=== PATIENT | male | born 1990 | race African-American/Black ===

== ENCOUNTER 2019-07-20 04:20 | Emergency (ER) | payer SELFPAY ==
[~2019-07-20] VITALS: Ht 180 cm; Wt 86.0 kg
[2019-07-20] MEDS ORDERED: ASPIRIN 81 MG CHEW (CHILDREN'S ASA) ONE (04:34)
[2019-07-20] MEDS ORDERED: NS IV 1000 ML 1,000 ML ONE (04:34)
[2019-07-20] MEDS ORDERED: NITROGLYCERIN 0.4 MG SL TABS BTL 25'S SL ONE (04:34)
[2019-07-20] MEDS ORDERED: NS IV 1000 ML 1,000 ML IV SCH (04:37)
[2019-07-20] MEDS ORDERED: NITROGLYCERIN 0.4 MG SL TABS BTL 25'S SL PRN (04:45)
[2019-07-20] MEDS ORDERED: ASPIRIN 81 MG CHEW (CHILDREN'S ASA) PO ONE (04:45)
--- NOTE | 2019-07-20 04:45 | ED Chest Pain ---
General Chief Complaint: Chest Pain Stated Complaint: CHEST & BACK PAIN Nursing Triage Note: Pt ambulates to [facility] with c/o chest pain that radiates to back that started yesterday. Pt denies any cardiac Hx, no fever/chills/SOB. Nursing Sepsis Screen: No Definite Risk Source: patient Exam Limitations: no limitations History of Present Illness Date Seen by Provider: Jul 20, 2019 Time Seen by Provider: 04:27 Initial Comments The patient arrives to the ER by private conveyance from home with chief complaint of chest pain, 7 out of 10, consistent for the past 2 days starting in his left chest radiating through to his back midline. He's having no shortness of breath and it is a little worse when he takes a deep inspiration but he's had no cough fevers chills nausea vomiting or sweats. The pain does not radiate to his shoulders or jaw. No personal or familial history of early-onset coronary artery disease. He has no history of high blood pressure cholesterol diabetes that is aware of. He does not follow with a primary care doctor. He does not smoke cigarettes. He denies use of recreational drugs and only occasionally drinks alcohol. He has never had pain like this before. He says is not been doing any strenuous workouts lately. He says it hurts when he tries to sit up. He cannot reproduce it by movement of his arms or shoulders. He cannot reproduce it by direct palpation. No known history of aneurysm or clots personally or fami lial. His fianc gave him a dose of ibuprofen because he was unable to sleep tonight and he says it did not help. He has not tried anything for indigestion and denies a history of GERD. He denies any recent travel or known sick contacts. He works as a high school coach. Historically he's had his gallbladder out as well as dental surgery but not recently. No recent periods of immobility, injury, long distance travel. Allergies and Home Medications Allergies Coded Allergies: No Known Drug Allergies (Unverified , 07/20/19) Patient Home Medication List Home Medication List Reviewed: Yes Review of Systems Review of Systems Constitutional: No chills, No diaphoresis, No fever, No malaise EENTM: No Blurred Vision, No Double Vision Respiratory: Denies Cough, Denies Shortness of Air Cardiovascular: See HPI, Chest Pain; Denies Edema, Denies Lightheadedness, Denies Palpitations, Denies Syncope Gastrointestinal: Denies Abdominal Pain, Denies Constipated, Denies Diarrhea, Denies Nausea Genitourinary: Denies Burning, Denies Discharge Musculoskeletal: see HPI; No back pain, No joint pain Skin: No pruritus, No rash Psychiatric/Neurological: Denies Headache, Denies Numbness All Other Systems Reviewed Negative Unless Noted: Yes Past [place]-Xxrftv-Lqlems Hx Patient Social History Alcohol Use: Occasionally Uses Recreational Drug Use: No Smoking Status: Never a Smoker 2nd Hand Smoke Exposure: No Recent Foreign Travel: No Contact w/Someone Who Travel: No Recent Infectious Disease Expo: No Recent Hopitalizations: No Physical Abuse: No Sexual Abuse: No Mistreated: No Fear: No Immunizations Up To Date Date of Influenza Vaccine: Jan 17, 2019 Seasonal Allergies Seasonal Allergies: No Past Medical History Surgeries: Yes Gallbladder Respiratory: No Cardiac: No Neurological: No Genitourinary: No Gastrointestinal: No Musculoskeletal: No Endocrine: No HEENT: No Cancer: No Psychosocial: No Integumentary: No Blood Disorders: No Physical Exam Vital Signs Vital Signs - First Documented 07/20/19 04:30 Temp 36.9 Pulse 61 Resp 20 B/P (MAP) 152/90 (110) Pulse Ox 99 O2 Delivery Room Air Capillary Refill : Less Than 3 Seconds Height, Weight, BMI Height: '" Weight: lbs. oz. kg; 26.00 BMI Method: General Appearance: WD/WN, Mild Distress HEENT: PERRL/EOMI, Pharynx Normal, Moist Mucous Membranes Neck: Full Range of Motion, Normal Inspection Respiratory: Chest Non Tender, Lungs Clear, Normal Breath Sounds, No Accessory Muscle Use, No Respiratory Distress Cardiovascular: Regular Rate, Rhythm, No Edema, Normal Peripheral Pulses Gastrointestinal: Normal Bowel Sounds, Non Tender, Soft Extremity: Normal Capillary Refill, Normal Inspection, No Pedal Edema Neurologic/Psychiatric: Alert, Oriented x3, No Motor/Sensory Deficits Skin: Normal Color, Warm/Dry Progress/Results/Core Measures Results/Orders Lab Results Laboratory Tests Test 07/20/19 04:32 Range/Units White Blood Count 6.0 4.3-11.0 10^3/uL Red Blood Count 5.13 4.35-5.85 10^6/uL Hemoglobin 14.6 13.3-17.7 G/DL Hematocrit 43 40-54 % Mean Corpuscular Volume 85 80-99 FL Mean Corpuscular Hemoglobin 29 25-34 PG Mean Corpuscular Hemoglobin Concent 34 32-36 G/DL Red Cell Distribution Width 13.6 10.0-14.5 % Platelet Count 222 130-400 10^3/uL Mean Platelet Volume 10.2 7.4-10.4 FL Neutrophils (%) (Auto) 48 42-75 % Lymphocytes (%) (Auto) 38 12-44 % Monocytes (%) (Auto) 11 0-12 % Eosinophils (%) (Auto) 2 0-10 % Basophils (%) (Auto) 0 0-10 % Neutrophils # (Auto) 2.9 1.8-7.8 X 10^3 Lymphocytes # (Auto) 2.3 1.0-4.0 X 10^3 Monocytes # (Auto) 0.7 0.0-1.0 X 10^3 Eosinophils # (Auto) 0.1 0.0-0.3 10^3/uL Basophils # (Auto) 0.0 0.0-0.1 10^3/uL Prothrombin Time 13.1 12.2-14.7 SEC INR Comment 1.0 0.8-1.4 Activated Partial Thromboplast Time 30 24-35 SEC Sodium Level 140 135-145 MMOL/L Potassium Level 4.1 3.6-5.0 MMOL/L Chloride Level 106 98-107 MMOL/L Carbon Dioxide Level 21 21-32 MMOL/L Anion Gap 13 5-14 MMOL/L Blood Urea Nitrogen 12 7-18 MG/DL Creatinine 1.24 0.60-1.30 MG/DL Estimat Glomerular Filtration Rate > 60 BUN/Creatinine Ratio 10 Glucose Level 111 H 70-105 MG/DL Calcium Level 9.3 8.5-10.1 MG/DL Corrected Calcium 9.1 8.5-10.1 MG/DL Magnesium Level 2.1 1.6-2.4 MG/DL Total Bilirubin 0.3 0.1-1.0 MG/DL Aspartate Amino Transf (AST/SGOT) 25 5-34 U/L Alanine Aminotransferase (ALT/SGPT) 30 0-55 U/L Alkaline Phosphatase 98 40-136 U/L Total Creatine Kinase 305 H 30-200 U/L Myoglobin 38.7 10.0-92.0 NG/ML Troponin I < 0.028 <0.028 NG/ML B-Type Natriuretic Peptide < 10.0 <100.0 PG/ML Total Protein 7.2 6.4-8.2 GM/DL Albumin 4.2 3.2-4.5 GM/DL Lipase 14 8-78 U/L My Orders Orders - JEMZOHRA J Cbc With Automated Diff (07/20/19 04:37) Magnesium (07/20/19 04:37) Chest 1 View, Ap/Pa Only (07/20/19 04:37) Ekg Tracing (07/20/19 04:37) Comprehensive Metabolic Panel (07/20/19 04:37) Myoglobin Serum (07/20/19 04:37) Protime With Inr (07/20/19 04:37) Partial Thromboplastin Time (07/20/19 04:37) O2 (07/20/19 04:37) Monitor-Rhythm Ecg Trace Only (07/20/19 04:37) Lipid Panel (07/21/19 06:00) Ed Iv/Invasive Line Start (07/20/19 04:37) Lipase (07/20/19 04:37) BNP (07/20/19 04:37) Troponin I (07/20/19 04:37) Nitroglycerin 0.4 Mg Btl 25's (Nitrostat (07/20/19 04:45) Aspirin Chewable Tablet (Baby Aspirin Ch (07/20/19 04:45) Ed Iv/Invasive Line Start (07/20/19 04:37) Ns Iv 1000 Ml (Sodium Chloride 0.9%) (07/20/19 04:37) Creatine Kinase (07/20/19 04:37) Nitroglycerin 0.4 Mg Btl 25's (Nitrostat (07/20/19 04:34) Aspirin Chewable Tablet (Baby Aspirin Ch (07/20/19 04:34) Ns Iv 1000 Ml (Sodium Chloride 0.9%) (07/20/19 04:34) Lidocaine 2% Viscous 15 Ml (Xylocaine Vi (07/20/19 05:00) Famotidine Tablet (Pepcid Tablet) (07/20/19 04:52) Antacid Suspension (Mylanta Suspension (07/20/19 05:00) Troponin I (07/20/19 05:30) Medications Given in ED Current Medications Medications Dose Ordered Sig/Dom Route Start Time Stop Time Status Last Admin Dose Admin Al Hydrox/Mg Hydrox/Simethicone 30 ml ONCE ONCE PO 07/20/19 05:00 07/20/19 05:01 DC 07/20/19 04:57 30 ML Aspirin 324 mg ONCE ONCE PO 07/20/19 04:45 07/20/19 04:46 DC 07/20/19 04:41 324 MG Lidocaine HCl 15 ml ONCE ONCE PO 07/20/19 05:00 07/20/19 05:01 DC 07/20/19 04:57 15 ML Nitroglycerin 0.4 mg UD PRN SL 07/20/19 04:45 07/20/19 04:42 0.4 MG Vital Signs/I&O 07/20/19 07/20/19 04:30 04:36 Temp 36.9 Pulse 61 Resp 20 B/P (MAP) 152/90 (110) Pulse Ox 99 O2 Delivery Room Air Room Air Blood Pressure Mean: 110 Progress Progress Note #1: Time: 04:43 Progress Note Coronary disease, GERD, costochondritis, aortic aneurysm , exercise-induced rhabdomyolysis, etc. Less likely pulmonary embolism, pneumonia or bronchospasm as he has no respiratory symptoms, tachycardia, air hunger or hypoxia. We'll going to start with nitroglycerin and aspirin. If this does not help his pain will try a GI cocktail. If his troponin is negative we may still consider getting a CT angiogram to rule out an aortic aneurysm and less likely pulmonary embolism. We'll also get a lipase and BNP. Wells' score for pulmonary embolism: 0.0 points; Low risk group: 1.3% chance of PE in an ED population. Perc criteria: 0 criteria; No need for further workup, as <2% chance of PE. 0455: Nitroglycerin did not improve the patient's pain. We are going to give him a GI cocktail. Progress Note #2: Time: 05:31 Progress Note The patient received no benefit from the nitroglycerin and his initial troponin is negative. He did however see improvement after the GI cocktail to nearly complete resolution of symptoms. The plan to repeat a delta troponin in 1 hour and if it is still negative we'll put him out on Carafate and omeprazole. We'll give him a referral to see Dr. Ramirez, General Surgery if he's not seeing improvement of symptoms in the next 2 weeks. The marginally elevated CPK is of uncertain significance. The patient is athletic but says is not been doing any strenuous workouts lately. He says for the past couple weeks he's mostly been sitting on the couch eating and gaining weight and his fiance has been encouraging him to get up and become more active but prior to that he has always been quite athletic. Initial ECG Impression Date: Jul 20, 2019 Initial ECG Impression Time: 04:30 Initial ECG Rate: 59 Initial ECG Rhythm: Normal Sinus Initial ECG Intervals: Normal Initial ECG Impression: Normal Initial ECG Comparisson: No Previous ECG Available Comment Normal sinus rhythm without clinically relevant ST elevation or depression. Diagnostic Imaging Diagonstic Imaging: Xray Plain Films/CT/US/NM/MRI: chest (1 view) Comments No acute cardiopulmonary process noted on one view chest x-ray. Reviewed: Reviewed by Me Transfer of Care Time: 06:00 Care transferred to: Dr. Lovett Departure Impression Primary Impression: GERD (gastroesophageal reflux disease) Qualified Codes: K21.0 - Gastro-esophageal reflux disease with esophagitis Disposition: HOME, SELF-CARE Condition: Stable Departure-Patient Inst. Referrals: JOHN RAMIREZ DO NO,LOCAL PHYSICIAN (PCP) Primary Care Physician Patient Instructions: Acid Reflux (Gastroesophageal Reflux Disease), Adult (DC) Add. Discharge Instructions: I suspect the pain in your chest is coming from esophagitis related to gastroesophageal reflux disease or GERD. Please review the handout on GERD. Avoid spicy, greasy foods that worsen your symptoms. For the next month or 2 avoid NSAIDs such as ibuprofen, Aleve, naproxen. Tylenol would be okay if you have minor pain. Start taking the omeprazole 20 mg twice a day for the next 4 weeks. Start taking the Carafate 1 tablet 30 minutes prior to meals and at bedtime for a total of 4 times a day for 2 weeks. If you're not seeing significant improvement by the end of this 2 weeks then you should follow-up with Dr. Ramirez, General Surgery and discuss further management of your symptoms. Alternatively you may establish care with a primary care doctor to continue the workup. If you're having significant chest pain, shortness of breath or other worrisome symptoms then please return to the nearest ER. You can try Rolaids, Tums, Mylanta, Maalox, etc. if you experience this discomfort again. All discharge instructions reviewed with patient and/or family. Voiced understanding. Scripts Sucralfate (Carafate) 1 Gm Tablet 1 GM PO QIDACHS for 14 Days, #5 TAB 0 Refills Prov: ZOHRA PARISH 07/20/19 Omeprazole (Omeprazole) 20 Mg Capsule. 20 MG PO BID for 30 Days, #6 CAP 0 Refills Prov: ZOHRA PARISH 07/20/19 ZOHRA PARISH Jul 20, 2019 04:45
[2019-07-20 04:49] LABS: BASOPHILS % (AUTO) 0 % (0-10); EOSINOPHILS # (AUTO) 0.1 10^3/uL (0.0-0.3); EOSINOPHILS % (AUTO) 2 % (0-10); HEMATOCRIT 43 % (40-54); HEMOGLOBIN 14.6 G/DL (13.3-17.7); LYMPHOCYTES # (AUTO) 2.3 X 10^3 (1.0-4.0); LYMPHOCYTES % (AUTO) 38 % (12-44); MEAN CORPUSCULAR HEMOGLOBIN 29 PG (25-34); MEAN CORPUSCULAR HGB CONC 34 G/DL (32-36); MEAN CORPUSCULAR VOLUME 85 FL (80-99); MEAN PLATELET VOLUME 10.2 FL (7.4-10.4); MONOCYTES # (AUTO) 0.7 X 10^3 (0.0-1.0); MONOCYTES % (AUTO) 11 % (0-12); NEUTROPHILS # (AUTO) 2.9 X 10^3 (1.8-7.8); NEUTROPHILS % (AUTO) 48 % (42-75); PLATELET COUNT 222 10^3/uL (130-400); RED CELL DISTRIBUTION WIDTH 13.6 % (10.0-14.5)
--- NOTE | 2019-07-20 04:49 | NUR ---
Chest pain re-assessed after ASA and 1st NTG, pt states pain "is the same". Dr. Shoemaker notified.
[2019-07-20] MEDS ORDERED: FAMOTIDINE 20 MG (PEPCID) TABLET PO STA (04:52)
[2019-07-20 05:00] LABS: PROTHROMBIN TIME PATIENT 13.1 SEC (12.2-14.7)
[2019-07-20] MEDS ORDERED: ANTACID SUSP 30 ML UDC (MYLANTA) PO ONE (05:00)
[2019-07-20] MEDS ORDERED: LIDOCAINE 2% VISCOUS 15 ML UDC PO ONE (05:00)
[2019-07-20 05:03] LABS: ALANINE AMINOTRANSFERASE 30 U/L (0-55); ALBUMIN 4.2 GM/DL (3.2-4.5); ALKALINE PHOSPHATASE 98 U/L (40-136); BILIRUBIN,TOTAL 0.3 MG/DL (0.1-1.0); BUN/CREATININE RATIO 10; CALCIUM 9.3 MG/DL (8.5-10.1); CARBON DIOXIDE 21 MMOL/L (21-32); CHLORIDE 106 MMOL/L (98-107); CREATINE KINASE 305 U/L (30-200); CREATININE SERUM 1.24 MG/DL (0.60-1.30); GFR ESTIMATED > 60; GLUCOSE 111 MG/DL (70-105); LIPASE 14 U/L (8-78); MAGNESIUM 2.1 MG/DL (1.6-2.4); POTASSIUM 4.1 MMOL/L (3.6-5.0); SODIUM 140 MMOL/L (135-145); TOTAL PROTEIN 7.2 GM/DL (6.4-8.2)
[2019-07-20] MEDS ORDERED: OMEP20CA18 PO (05:41)
[2019-07-20] MEDS ORDERED: SUCR1TAB36 PO (05:41)
--- NOTE | 2019-07-20 07:01 | NUR ---
report given to DECLAN Askew.
[2019-07-20 07:14] VITALS: BP 142/90
--- NOTE | 2019-07-20 07:27 | Diagnostic Imaging Report ---
INDICATION: Chest pain COMPARISON: None FINDINGS: Single frontal view of the chest demonstrates normal heart size and pulmonary vascularity. The lungs are well aerated and clear. No large pleural effusion or pneumothorax is seen. The visualized osseous structures show no acute abnormalities. IMPRESSION: 1. No acute cardiopulmonary process. Dictated by: Dictated on workstation # [id number]
== END 2019-07-20 07:14 | disposition home or self-care (01) ==
LOC: ER 04:25
DX: K21.0 Gastro-esophageal reflux disease with esophagitis (principal)
CPT/HCPCS: 36415; 71045; 80053; 82550; 83690; 83735; 83874; 83880; 84484; 85025; 85610; 85730; 93005; 93041